=== PATIENT | female | born 1970 | race African-American/Black ===

== ENCOUNTER 2017-05-16 09:43 | Emergency (ER) | payer MEDICAID, OTHER ==
[~2017-05-16] VITALS: Ht 170.2 cm; Wt 82.0 kg
[~2017-05-16 09:43] MED LIST: LISI2.5T89
[2017-05-16] MEDS ORDERED: IPRATROPIUM BROMIDE (0.02%) 0.5MG/2.5ML NEB HHN STA (10:06)
[2017-05-16] MEDS ORDERED: ALBUTEROL (0.083%) 2.5MG/3ML NEB HHN STA (10:06)
[2017-05-16] MEDS ORDERED: METHYLPREDNISOLONE SOD SUCC 125 MG/2 ML VIAL IV STA (10:06)
[2017-05-16] MEDS ORDERED: MAGNESIUM 2 G PREMIX 50 ML IV ONE (10:30)
[2017-05-16 11:16] VITALS: BP 111/81
== END 2017-05-16 12:15 | disposition home or self-care (01) ==
LOC: ER 09:43
DX: J45.901 Unspecified asthma with (acute) exacerbation (principal); E11.9 Type 2 diabetes mellitus without complications; I10 Essential (primary) hypertension; G40.909 Epilepsy, unspecified, not intractable, without status epilepticus; F17.210 Nicotine dependence, cigarettes, uncomplicated; Z88.0 Allergy status to penicillin; Z71.6 Tobacco abuse counseling
CPT/HCPCS: 71010; 93005; 94644; 96365; 96375; 99285; 99406; J2930; J3475; J7611

== ENCOUNTER 2025-05-23 20:14 | Emergency (ER) | payer BC, OTHER ==
[~2025-05-23] VITALS: Ht 167.6 cm; Wt 100.0 kg
[2025-05-23 20:17] VITALS: O2SAT 100
[2025-05-23 20:57] VITALS: BP 147/104; PULSE 98; RESP 18; O2SAT 98
== END 2025-05-23 21:16 | disposition home or self-care (01) ==
LOC: ER 20:14
DX: F19.129 Other psychoactive substance abuse with intoxication, unspecified (principal); I10 Essential (primary) hypertension; E11.9 Type 2 diabetes mellitus without complications; Z88.0 Allergy status to penicillin; Z88.1 Allergy status to other antibiotic agents
CPT/HCPCS: 99283